=== PATIENT | male | born 1990 | race Caucasian/White ===

== ENCOUNTER 2024-01-02 13:10 | Emergency (ER) | payer BC, SELFPAY ==
[2024-01-02 13:10] VITALS: BP 113/79; PULSE 75; RESP 18; TEMP 36.7; O2SAT 98; BMI 29.2
[2024-01-02 13:15] VITALS: BP 113/79; PULSE 75; RESP 18; TEMP 36.7; O2SAT 98
== END 2024-01-02 13:17 | disposition home or self-care (01) ==
LOC: UTC 13:15
PROVIDERS: Emergency Provider Nurse Practitioner Family
DX: Z48.02 Encounter for removal of sutures (principal)